=== PATIENT | male | born 1985 | race Caucasian/White ===

== ENCOUNTER 2019-02-20 17:15 | Emergency (ER) | payer MEDICAID ==
[~2019-02-20] VITALS: Ht 182.9 cm; Wt 95.3 kg
[2019-02-20 17:15] VITALS: BP 140/70
[2019-02-20 18:04] LABS: APPEARANCE,URINE CLOUDY; BILIRUBIN, URINE NEGATIVE (NEGATIVE); GLUCOSE, URINE (UA) NEGATIVE (NEGATIVE); KETONES,URINE NEGATIVE (NEGATIVE); LEUKOCYTE ESTERASE ,URINE 1+ (NEGATIVE); NITRITE,URINE NEGATIVE (NEGATIVE); PH,URINE 7 (4.5-8.0); PROTEIN,URINE NEGATIVE (NEGATIVE); UROBILINOGEN,URINE 1 MG/DL (0.0-1.0)
[2019-02-20 18:06] LABS: COLOR,URINE YELLOW
[2019-02-20] MEDS ORDERED: BACTRIM DS TAB1 EAC1 ORAL (18:29)
[2019-02-20] MEDS ORDERED: Lidocaine 1% MPF 10mg/ml 5ml INJ ONE (18:30)
[2019-02-20] MEDS ORDERED: Azithromycin 250mg tab ORAL ONE (18:30)
--- NOTE | 2019-02-20 18:30 | Emergency Room Report ---
History of Present Illness General Chief Complaint: Male Urogenital Problems Source: Patient Present Illness [facility] Disclaimer: Please note that this report is being documented using DRAGON technology. This can lead to erroneous entry secondary to incorrect interpretation by the dictating instrument. HPI: 33-year-old male presents for evaluation of dysuria. Symptoms have been present for approximately 3 days and he describes it as a stinging throughout urination. He also notes left-sided testicular pain but denies any swelling, overlying skin changes and he is concerned that he has a hernia as he has worsening pain with ambulation. He has no prior history of hernia or abdominal surgery. He cannot remember lifting any heavy objects, injuring himself in any way or doing anything out of the ordinary. He did have unprotected sexual intercourse approximately 3 weeks ago. Did not wear condoms or other barrier protection. He denies any pain in the abdomen, nausea, vomiting, diarrhea, hematuria, flank pain, fevers, chills, chest pain, shortness of breath or other symptoms. PMH: Denies PSH: Denies Allergies: Denies Social Hx: Denies drug or alcohol abuse Allergies: Coded Allergies: No Known Allergies (Unverified , 02/20/19) Nursing Documentation-PMH Past Medical History: No Stated History Review of Systems All Other Systems: negative except mentioned in HPI Physical Exam Vital Signs Date Time Temp Pulse Resp B/P (MAP) Pulse Ox O2 Delivery O2 Flow Rate FiO2 02/20/19 17:09 98.1 86 16 140/70 (93) 98 Room Air General: Awake and alert, no acute distress Resp: Normal work of breathing. Abdomen: Abdomen is soft, nondistended. Nontender. No masses appreciated. : Circumcised male. No blood or discharge from the urethral meatus. Testicles are in anatomic position. No overlying edema or erythema around the scrotum. There is tenderness over the upper poles of the left testicle. I cannot palpate any defect or mass in the groin. Skin: Intact. No abrasions, laceration or rash over the exposed skin MSK: Normal tone and bulk. Moving all extremities. No obvious deformity. Neuro: Awake and alert. Mentating appropriately. Back/Spine: No midline tenderness in the cervical, thoracic or lumbosacral spine. Medical Decision Making Homeless Attestation I have evaluated the patient determined he is safe and appropriate for outpatient work-up Diagnostic Impression: Primary Impression: Acute epididymitis Additional Impression: UTI (urinary tract infection) ER Course Is a 33-year-old male presenting for evaluation of left-sided testicle pain for the past 3 days. Differential includes but is not limited to hernia, muscle strain, epididymitis, orchitis, cellulitis, diverticulitis, STI, urinary tract infection. Of these, the patient's history is most consistent with epididymitis given his recent sexual contact. Also appears that he has a urinary tract infection based on the urinalysis that was obtained on his arrival. He will be treated in the emergency department with azithromycin and ceftriaxone and then discharged home on oral antibiotics for treatment of urinary tract infection. He can follow with one of the clinics listed in his discharge paperwork if his symptoms fail to improve or suddenly worsen. We discussed reasons to return to the emergency department as well as need to follow-up with PMD. He understands and agrees with this treatment plan will be discharged home. Laboratory Tests Test 02/20/19 17:45 Urine Color Yellow Urine Appearance Cloudy Urine pH 7 (4.5-8.0) Urine Specific B[place] 1.015 (1.005-1.035) Urine Protein Negative (NEGATIVE) Urine Glucose (UA) Negative (NEGATIVE) Urine Ketones Negative (NEGATIVE) Urine Blood Negative (NEGATIVE) Urine Nitrite Negative (NEGATIVE) Urine Bilirubin Negative (NEGATIVE) Urine Urobilinogen 1 MG/DL (0.0-1.0) H Urine Leukocyte Esterase 1+ (NEGATIVE) H Urine RBC 0-2 /HPF (0 - 0) H Urine WBC 0-2 /HPF (0 - 0) Urine Squamous Epithelial Cells None /LPF (NONE/OCC) Urine Amorphous Sediment Many /LPF (NONE) H Urine Bacteria Moderate /HPF (NONE) H Last Vital Signs Date Time Temp Pulse Resp B/P (MAP) Pulse Ox O2 Delivery O2 Flow Rate FiO2 02/20/19 17:09 98.1 86 16 140/70 (93) 98 Room Air Disposition: HOME, SELF-CARE Condition: Stable Scripts Trimethoprim/Sulfamethoxazole 160/800* (BACTRIM DS TABLET*) 1 Each Tablet 1 TAB ORAL Q12H for 10 Days, #20 TAB 0 Refills Prov: Rip Dodd MD 02/20/19 Referrals: NOT CHOSEN IPA/,REFERRING (PCP) [facility] Patient Instructions: Epididymitis, Dysuria Additional Instructions: You are treated for epididymitis in the emergency department today however you also be started antibiotics for possible urinary tract infection. Please use the Keflex prescribed to you twice daily for the next 10 days. He will be notified about your other test results by telephone if they are abnormal. You can return to the emergency department any worsening of your symptoms or pain. Use Tylenol and Motrin as needed over the next few days. Return to the emergency department any new or worsening symptoms and follow-up with 1 of the clinics listed here in your discharge paperwork for reevaluation within the next week. Rip Dodd MD Feb 20, 2019 18:30
[2019-02-20 18:50] VITALS: BP 130/69
== END 2019-02-20 18:50 | disposition home or self-care (01) ==
LOC: EDBD 17:15 → EMR 18:15
DX: N39.0 Urinary tract infection, site not specified (principal); N45.1 Epididymitis
CPT/HCPCS: 81003; 87086; 96372; 96374; 99284; J0696; Q0144